=== PATIENT | female | born 1995 | race Two or more races ===

== ENCOUNTER 2016-12-11 16:09 | Emergency (ER) | payer SELFPAY ==
[2016-12-11 16:30] VITALS: BP 102/73
[2016-12-11] MEDS ORDERED: IBUPROFEN 600 MG TABLET PO ONE (16:54)
[2016-12-11] MEDS ORDERED: DEXAMETHASONE SOD PHOS INJ 10 MG/1 ML VIAL IM ONE (16:54)
--- NOTE | 2016-12-11 16:56 | ER Document Report ---
HPI - HPI Pain Level: 4 Notes: Patient is a 21-year-old female who presents the ED complaining of a sore throat , fever, decreased appetite, and a headache 1-2 days. Patient states that she is still able to eat and drink, but does have discomfort with swallowing. Last dose of motrin/tylenol was last night. She denies any drug allergies. Denies any other significant medical history. Denies any history of abscesses, mono, or strep. Denies any IV drug use. Denies any head injury, neck pain, hoarseness, drooling, URI, chest pain, palpitations, syncope, cough, shortness of breath, wheeze, dyspnea, abdominal pain, nausea/vomiting/diarrhea, urinary retention, dysuria, hematuria, or rash. - ROS Notes: REVIEW OF SYSTEMS: CONSTITUTIONAL : see hpi. Denies recent illness. EENT: see hpi. CARDIOVASCULAR: Denies chest pain. Denies palpitations or racing or irregular heart beat. Denies ankle edema. RESPIRATORY: Denies cough, cold, or chest congestion. Denies shortness of breath, difficulty breathing, or wheezing. GASTROINTESTINAL: Denies abdominal pain or distention. Denies nausea, vomiting , or diarrhea. Denies blood in vomitus, stools, or per rectum. Denies black, tarry stools. Denies constipation. GENITOURINARY: Denies difficulty urinating, painful urination, burning, frequency, blood in urine, or discharge. MUSCULOSKELETAL: Denies back or neck pain or stiffness. Denies joint pain or swelling. SKIN: Denies rash, lesions or sores. NEUROLOGICAL: see hpi. Denies confusion or altered mental status. Denies passing out or loss of consciousness. Denies dizziness or lightheadedness. Denies weakness or paralysis or loss of use of either side. Denies problems with gait or speech. Denies sensory loss, numbness, or tingling. ALL OTHER SYSTEMS REVIEWED AND NEGATIVE. Dictation was performed using [employer] voice recognition software - CARDIOVASCULAR Cardiovascular: DENIES: Chest pain - REPRODUCTIVE LMP: 2 days ago - DERM Skin Color: Normal Past Medical History - Social History Smoking Status: Unknown if Ever Smoked Chew tobacco use (# tins/day): No Frequency of alcohol use: Occasional Drug Abuse: None Family History: Reviewed & Not Pertinent Patient has suicidal ideation: No Patient has homicidal ideation: No Renal/ Medical History: Denies: Hx Peritoneal Dialysis Surgical Hx: Negative - Immunizations Hx Diphtheria, Pertussis, Tetanus Vaccination: No Vertical Provider Document - CONSTITUTIONAL Agree With Documented VS: Yes Notes: PHYSICAL EXAMINATION: GENERAL: Well-appearing, well-nourished and in no acute distress. A&Ox4 HEAD: Atraumatic, normocephalic. EYES: Pupils equal round and reactive to light, extraocular movements intact, sclera anicteric, conjunctiva are normal. ENT: EAC clear b/l. TM's intact b/l without erythema, fluid, or perforation. Nares patent and without discharge. oropharynx mild erythema without exudates. 2+ tonsilar hypertrophy b/l with exudates b/l. No palatine shift. Uvula midline. No tongue protrusion. Moist mucous membranes. No sinus tenderness. NECK: Normal range of motion, supple with anterior cerv lymphadenopathy. No rigidity/meningismus. LUNGS: Breath sounds clear to auscultation bilaterally and equal. No wheezes rales or rhonchi. HEART: Regular rate and rhythm without murmurs, rubs, gallops. ABDOMEN: Soft, nontender, nondistended abdomen. No guarding, no rebound. No masses appreciated. Normal bowel sounds present. No CVA tenderness bilaterally. No obvious hepatosplenomegally. NEUROLOGICAL: Normal speech, normal gait. Normal sensory, motor exams PSYCH: Normal mood, normal affect. SKIN: Warm, Dry, normal turgor, no rashes or lesions noted. - INFECTION CONTROL TRAVEL OUTSIDE OF THE [place] IN LAST 30 DAYS: No - RESPIRATORY O2 Sat by Pulse Oximetry: 97 Course - Re-evaluation Re-evalutation: 12/11/16 19:14 Patient is an well-hydrated 21-year-old female who presents the ED with exudative pharyngitis, suspect could still be strep based on H&P. Vitals are stable. PE is otherwise unremarkable. Rapid strep was negative with throat culture pending. CBC showed a white count of 13.2. [place] test was negative and CMP was relatively unremarkable. Patient is tolerating p.o. intake. Decadron 10 mg was given IM along with Motrin. Low suspicion for any meningitis, sepsis , peritonsillar/pharyngeal abscess, respiratory compromise, Rick's, or other emergent systemic condition at this time. Patient is aware this condition can change from initial presentation and she needs to monitor symptoms closely. I will send her home with a prescription for penicillin to take as directed. Conservative measures otherwise for symptoms. Recheck with your PCM in 2-3 days. Return to the ED with any worsening/concerning symptoms otherwise as reviewed in discharge. Patient is in agreement. - Vital Signs Vital signs: Temp Pulse Resp BP Pulse Ox 100.1 F 107 H 20 102/73 97 12/11/16 16:27 12/11/16 16:27 12/11/16 16:27 12/11/16 16:27 12/11/16 16:27 - Laboratory Result Diagrams: 12/11/16 18:10 12/11/16 18:10 Discharge - Discharge Clinical Impression: Exudative pharyngitis Condition: Stable Disposition: HOME, SELF-CARE Instructions: Penicillin V K ([facility]), Strep Throat ([facility]), Sore Throat ([facility]) Additional Instructions: Monitor for any worsening signs of infection Maintain adequate fluid intake Take meds as directed Salt water gargles, throat sprays, mouthwash rinse, peroxide gargles tylenol/ibuprofen as needed New toothbrush tomorrow evening over the counter cold medication as needed for symptoms F/u: with your PCM in 2-3 days for a recheck Consider consult with ENT for ongoing/worsening symptoms Return to the ED with any fever, worsening pain, chest pain, neck pain/stiffness , shortness of breath, cough, drooling, trouble swallowing/breathing, abdominal pain, n/v/d, rash, or worsening/concerning symptoms otherwise. Prescriptions: Penicillin V Potassium [Penicillin Vk 500 mg Tablet] 500 mg PO BID #20 tablet Referrals: [facility] [Provider Group] - Follow up as needed [facility] [Provider Group] - Follow up as needed
[2016-12-11 18:24] LABS: ABSOLUTE LYMPHOCYTES (AUTO) 0.8 10^3/uL (0.5-4.7); ABSOLUTE MONOCYTES (AUTO) 1.1 10^3/uL (0.1-1.4); ABSOLUTE NEUT (AUTO) 11.9 10^3/uL (1.7-8.2); BASOPHILS % (AUTO) 0.2 % (0-2); HEMATOCRIT 38.3 % (36.0-47.0); HEMOGLOBIN 13.5 g/dL (12.0-15.5); HGB HCT DIFFERENCE 2.2; LYMPHOCYTES % (AUTO) 5.8 % (13-45); MEAN CORPUSCULAR HEMOGLOBIN 31.6 pg (27.0-33.4); MEAN CORPUSCULAR HGB CONC 35.2 g/dL (32.0-36.0); MEAN CORPUSCULAR VOLUME 90 fl (80-97); MONOCYTES % (AUTO) 7.6 % (3-13); RED BLOOD COUNT 4.26 10^6/uL (3.72-5.28); RED CELL DISTRIBUTION WIDTH 12.6 % (11.5-14.0); SEGMENTED NEUTROPHILS % (AUTO) 86.4 % (42-78); WHITE BLOOD COUNT 13.8 10^3/uL (4.0-10.5)
[2016-12-11 18:51] LABS: ALANINE AMINOTRANSFERASE 49 U/L (9-52); ALKALINE PHOSPHATASE 92 U/L (38-126); ANION GAP 14 (5-19); ASPARTATE AMINO TRANSFERASE 38 U/L (14-36); BILIRUBIN,DIRECT 0.5 mg/dL (0.0-0.4); BILIRUBIN,TOTAL 1.1 mg/dL (0.2-1.3); BLOOD UREA NITROGEN 8 mg/dL (7-20); CALCIUM 9.3 mg/dL (8.4-10.2); CARBON DIOXIDE 21 mmol/L (22-30); CHLORIDE 102 mmol/L (98-107); CREATININE RESULT 0.68 mg/dL (0.52-1.25); GLUCOSE 101 mg/dL (75-110); POTASSIUM 3.6 mmol/L (3.6-5.0); SODIUM 136.8 mmol/L (137-145); TOTAL PROTEIN 7.3 g/dL (6.3-8.2)
== END 2016-12-11 19:42 | disposition home or self-care (01) ==
LOC: ER 16:09
DX: J02.9 Acute pharyngitis, unspecified (principal); J35.1 Hypertrophy of tonsils; R50.9 Fever, unspecified; R63.0 Anorexia; R51 Headache
CPT/HCPCS: 99283; 96372; 36415; 87070; 87880; 85025; 86308; 80053; J1100

== ENCOUNTER 2017-12-06 10:39 | Emergency (ER) | payer OTHER ==
[2017-12-06 10:44] VITALS: BP 132/94
--- NOTE | 2017-12-06 11:38 | ER Document Report ---
HPI - HPI Patient complains to provider of: Injured left foot Onset: Just prior to arrival Pain Level: 2 Context: 22-year-old female injured her left fifth toe when she was stepping down a ladder her toe got caught on metal and cut the toe and pulled her toe while you are causing pain to the toe. Her tetanus shot was given 1 year ago. Associated Symptoms: None Exacerbated by: Movement Relieved by: Denies Similar symptoms previously: No Recently seen / treated by doctor: No - ROS ROS below otherwise negative: Yes Systems Reviewed and Negative: Yes All other systems reviewed and negative Past Medical History - General Information source: Patient - Social History Smoking Status: Unknown if Ever Smoked Lives with: Family Family History: Reviewed & Not Pertinent - Medical History Medical History: Negative Renal/ Medical History: Denies: Hx Peritoneal Dialysis Surgical Hx: Negative - Immunizations Hx Diphtheria, Pertussis, Tetanus Vaccination: No Vertical Provider Document - CONSTITUTIONAL Agree With Documented VS: Yes Exam Limitations: No Limitations - INFECTION CONTROL TRAVEL OUTSIDE OF THE [place] IN LAST 30 DAYS: No - MUSCULOSKELETAL/EXTREMETIES Musculoskeletal/Extremeties: Tender. negative: FROM - She is able to move the toe but it hurts, no deformity. Notes: Left fifth toe with a superficial abrasion to the tibial side mid left fifth toe and fissure at the base of the fifth toe. No stitches are needed. Sensation is intact. - NEURO Level of Consciousness: Alert Motor/Sensory: No Motor Deficit, No Sensory Deficit Course - Re-evaluation Re-evalutation: 12/06/17 11:55 X-rays negative per radiologist. - Vital Signs Vital signs: Temp Pulse Resp BP Pulse Ox 98.4 F 66 18 132/94 H 99 12/06/17 10:43 12/06/17 10:43 12/06/17 10:43 12/06/17 10:43 12/06/17 10:43 Procedures - Immobilization Left Foot Time completed: 12:05 Pre-Proc Neuro Vasc Exam: Normal Immobilizer type: Other - Ramiro tape and postop shoe Performed by: PCT Post-Proc Neuro Vasc Exam: Normal Alignment checked and good: Yes Discharge - Discharge Clinical Impression: Left fifth toe injury, Abrasions Condition: Good Disposition: HOME, SELF-CARE Instructions: Abrasions ([facility]), Acetaminophen, Use of [id number] Ibuprofen ([facility]), Sprained Toe ([facility]) Additional Instructions: Keep the abrasions clean and dry Bacitracin daily Fracture shoe so you do not have to bend it at the toe joint when you walk until the wounds are healed Follow-up if you have any increased pain swelling fever redness or pus Forms: Restricted Release, Return to Work
--- NOTE | 2017-12-06 11:56 | RADIOLOGY REPORT (SQ) ---
EXAM DESCRIPTION: FOOT LEFT COMPLETE COMPLETED DATE/TIME: 12/06/2017 11:28 am REASON FOR STUDY: inury, cut foot COMPARISON: None. NUMBER OF VIEWS: Three views. TECHNIQUE: AP, lateral and oblique radiographic images acquired of the left foot. LIMITATIONS: External bandage. FINDINGS: MINERALIZATION: Normal. BONES: No acute fracture or dislocation. No worrisome bone lesions. JOINTS: No effusions. SOFT TISSUES: No foreign body. OTHER: No other significant finding. IMPRESSION: No fracture or foreign body. TECHNICAL DOCUMENTATION: JOB ID: [id number] [employer]- All Rights Reserved Reading location - IP/workstation name: [email or web address]
[2017-12-06] MEDS ORDERED: ACETAMINOPHEN 325 MG TABLET PO ONE (11:58)
== END 2017-12-06 12:16 | disposition home or self-care (01) ==
LOC: ER 10:39
DX: S99.922A Unspecified injury of left foot, initial encounter (principal); X50.0XXA Overexertion from strenuous movement or load, initial encounter
CPT/HCPCS: 99283

== ENCOUNTER 2017-12-30 08:24 | Emergency (ER) | payer SELFPAY ==
[2017-12-30 08:31] VITALS: BP 113/68
--- NOTE | 2017-12-30 09:08 | ER Document Report ---
HPI - HPI Patient complains to provider of: Cough and congestion Pain Level: 3 Context: Patient is a 22-year-old female presenting to the emergency department complaining of cough and congestion for the last 3 weeks. Patient states she is also had intermittent headaches throughout the last 3 weeks. Patient states she has also had recent episodes of posttussive vomiting. Patient's denying any diarrhea or fever. Patient also denying dysuria or vaginal discharge. Patient states her last measure. Was 11/15/2017. She does not have a primary care provider numbers have insurance. Patient states 2 nights ago she had a coughing fit that she ended up urinating herself and also had multiple episodes of posttussive vomiting which is what concerned her and presents her to the emergency room. Past medical history: None Medications: None Allergies: None surgical history: None Patient admits to cigarette smoking, occasional marijuana use, occasional EtOH use. Past Medical History - General Information source: Patient - Social History Smoking Status: Current Every Day Smoker Frequency of alcohol use: Occasional Drug Abuse: Marijuana Lives with: Family Family History: Reviewed & Not Pertinent Renal/ Medical History: Denies: Hx Peritoneal Dialysis - Immunizations Hx Diphtheria, Pertussis, Tetanus Vaccination: No Vertical Provider Document - CONSTITUTIONAL Agree With Documented VS: Yes Notes: GENERAL: Alert, interacts well. No acute distress. HEAD: Normocephalic, atraumatic. No frontal sinus tenderness, positive bilateral maxillary sinus tenderness. EYES: Pupils equal, round, and reactive to light. Extraocular movements intact. ENT: Oral mucosa moist, tongue midline. Nares patent, swollen turbinates bilaterally, TM's intact nonerythematous, nonbulging. Pharynx minorly erythematous, no exudate or palatal petechiae noted NECK: Full range of motion. Supple. Trachea midline. No lymphadenopathy appreciated LUNGS: Clear to auscultation bilaterally, no wheezes, rales, or rhonchi. No respiratory distress. HEART: Regular rate and rhythm. No murmur ABDOMEN: Soft, non-tender. Non-distended. Bowel sounds present in all 4 quadrants. EXTREMITIES: Moves all 4 extremities spontaneously. No edema, normal radial and dorsalis pedis pulses bilaterally. No cyanosis. BACK: no cervical, thoracic, lumbar midline tenderness. No saddle anesthesia, normal distal neurovascular exam. NEUROLOGICAL: Alert and oriented x3. Normal speech. cranial nerves II through XII grossly intact PSYCH: Normal affect, normal mood. SKIN: Warm, dry, normal turgor. No rashes or lesions noted. - INFECTION CONTROL TRAVEL OUTSIDE OF THE [place] IN LAST 30 DAYS: No Course - Re-evaluation Re-evalutation: 12/30/17 09:05 Patient's lung sounds are clear, no work of breathing. Pneumonia not likely. Likely URI with sinusitis. Will treat with oral antibiotics. Discussed at length with patient supportive treatments at home. Vital signs reviewed, nursing notes reviewed, patient not tachycardic and afebrile at this time. Stable for discharge. - Vital Signs Vital signs: Temp Pulse Resp BP Pulse Ox 98.5 F 84 18 113/68 96 12/30/17 08:30 12/30/17 08:30 12/30/17 08:30 12/30/17 08:30 12/30/17 08:30 Discharge - Discharge Clinical Impression: URI (upper respiratory infection) Qualifiers: URI type: unspecified viral URI Qualified Code(s): J06.9 - Acute upper respiratory infection, unspecified Sinusitis Qualifiers: Sinusitis location: maxillary Chronicity: acute Recurrence: non-recurrent Qualified Code(s): J01.00 - Acute maxillary sinusitis, unspecified Condition: Stable Disposition: HOME, SELF-CARE Instructions: Upper Respiratory Illness ([facility]), Viral Syndrome ([facility]), Sinusitis ([facility]) Additional Instructions: As we discussed you have been seen and treated in the emergency room for an upper respiratory infection and sinusitis. He should take medications as prescribed. Please stay well-hydrated and get plenty of rest. Please take over -the-counter Sudafed or allergy medication for your nasal congestion. Please make an appointment with your primary care provider in the next 12-24 hours. Please return to the emergency room for any other concerning symptoms. Prescriptions: Benzonatate [Tessalon Perles 100 mg Capsule] 100 mg PO Q8HP PRN #40 capsule PRN Reason: Amox Tr/Potassium Clavulanate [Augmentin 875-125 Tablet] 1 tab PO BID 10 Days tablet Mometasone Furoate [Nasonex] 2 spray NS Q12 #1 spray.pump Referrals: [facility] [Provider Group] - Follow up as needed
== END 2017-12-30 09:27 | disposition home or self-care (01) ==
LOC: ER 08:24
DX: J06.9 Acute upper respiratory infection, unspecified (principal); J01.00 Acute maxillary sinusitis, unspecified; R11.10 Vomiting, unspecified; F17.200 Nicotine dependence, unspecified, uncomplicated
CPT/HCPCS: 99283

== ENCOUNTER 2018-07-19 15:30 | Emergency (ER) | payer OTHER ==
[2018-07-19 15:44] VITALS: BP 108/52
--- NOTE | 2018-07-19 16:37 | ER Document Report ---
HPI - HPI Patient complains to provider of: head injury Time Seen by Provider: 07/19/18 16:28 Onset: Just prior to arrival Onset/Duration: Sudden Quality of pain: Achy Severity: Moderate Pain Level: 3 Context: Patient presents emergency department with complaints of head injury. 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 She denies change in LOC. Reports she had a little headache now. Denies vomiting. Her at the bedside reports she is acting normal as usual. She reports her work sent her here. Associated Symptoms: None Exacerbated by: Denies Relieved by: Denies Similar symptoms previously: No Recently seen / treated by doctor: No - REPRODUCTIVE Reproductive: DENIES: : - DERM Skin Color: Normal, [place] Past Medical History - General Information source: Patient Last Menstrual Period: june - Social History Smoking Status: Current Every Day Smoker Cigarette use (# per day): Yes Frequency of alcohol use: Occasional Drug Abuse: None Occupation: [employer] Lives with: Family Family History: Reviewed & Not Pertinent Patient has suicidal ideation: No Patient has homicidal ideation: No - Medical History Medical History: Negative Renal/ Medical History: Denies: Hx Peritoneal Dialysis Surgical Hx: Negative - Immunizations Hx Diphtheria, Pertussis, Tetanus Vaccination: No Vertical Provider Document - CONSTITUTIONAL Agree With Documented VS: Yes Exam Limitations: No Limitations General Appearance: WD/WN, No Apparent Distress - INFECTION CONTROL TRAVEL OUTSIDE OF THE [place] IN LAST 30 DAYS: No - HEENT HEENT: Atraumatic, Normocephalic, PERRLA - NECK Neck: Normal Inspection, Supple. negative: Lymphadenopathy-Left, Lymphadenopathy-Right - RESPIRATORY Respiratory: Breath Sounds Normal, No Respiratory Distress - CARDIOVASCULAR Cardiovascular: Regular Rate, Regular Rhythm - MUSCULOSKELETAL/EXTREMETIES Musculoskeletal/Extremeties: MAEW, FROM, Non-Tender - NEURO Level of Consciousness: Awake, Alert, Appropriate - DERM Integumentary: Warm, Dry Course - Re-evaluation Re-evalutation: 07/19/18 16:37 No obvious signs of trauma. Patient is acting appropriately answering all questions appropriately. Discussed head injury signs and symptoms to return for. She verbalized understanding to all instruction. Dictation of this chart was performed using voice recognition software; therefor e, there may be some unintended grammatical errors. - Vital Signs Vital signs: Temp Pulse Resp BP Pulse Ox 97.9 F 66 16 108/52 L 99 07/19/18 15:42 07/19/18 15:42 07/19/18 15:42 07/19/18 15:42 07/19/18 15:42 Discharge - Discharge Clinical Impression: Head injury Qualifiers: Encounter type: initial encounter Qualified Code(s): S09.90XA - Unspecified injury of head, initial encounter Condition: Stable Disposition: HOME, SELF-CARE Instructions: Head Injury Precautions ([facility]) Additional Instructions: *You have been evaluated for a head injury after being hit in head by a ladder *Rest your brain, No video games/TV *Follow up with a primary care provider in 1 week for recheck *Return to ED for worsening condition, changes, needs, vomiting confusion concerns. Forms: Return to Work
== END 2018-07-19 16:40 | disposition home or self-care (01) ==
LOC: ER 15:30
DX: S09.90XA Unspecified injury of head, initial encounter (principal); W20.8XXA Other cause of strike by thrown, projected or falling object, initial encounter; Y99.0 Civilian activity done for income or pay; F17.210 Nicotine dependence, cigarettes, uncomplicated
CPT/HCPCS: 99283

== ENCOUNTER 2019-12-02 18:11 | Emergency (ER) | payer MEDICAID, OTHER ==
--- NOTE | 2019-12-02 18:29 | ER Document Report ---
ED Medical Screen (RME) - General Chief Complaint: Vag Bleeding, +preg <12wks Stated Complaint: VAGINAL BLEEDING/ABDOMINAL PAIN Time Seen by Provider: 12/02/19 18:20 Mode of Arrival: Ambulatory Information source: Patient Notes: 24-year-old female presents to ED for complaint of vaginal bleeding that started this afternoon. She states she has not been needing to use a sanitary pad she is just been cleaning herself. She is 1 para 0. She does not have any pelvic cramping but she does have some pain in her upper abdomen. She said she is not sure exactly how far she is but she thinks she is 14 weeks. She does not smoke does not drink does not use any illicit drugs. 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 I have greeted and performed a rapid initial assessment of this patient. A comprehensive ED assessment and evaluation of the patient, analysis of test results and completion of medical decision making process will be conducted by an additional ED providers. TRAVEL OUTSIDE OF THE [place] IN LAST 30 DAYS: No - Related Data Allergies/Adverse Reactions: No Known Allergies Allergy (Verified 07/19/18 15:51) Past Medical History Renal/ Medical History: Denies: Hx Peritoneal Dialysis - Immunizations Hx Diphtheria, Pertussis, Tetanus Vaccination: No Physical Exam - Vital signs Vitals: Temp Pulse Resp BP Pulse Ox 98.5 F 76 18 131/77 H 100 12/02/19 18:15 12/02/19 18:15 12/02/19 18:15 12/02/19 18:15 12/02/19 18:15 Course - Vital Signs Vital signs: Temp Pulse Resp BP Pulse Ox 98.5 F 76 18 131/77 H 100 12/02/19 18:15 12/02/19 18:15 12/02/19 18:15 12/02/19 18:15 12/02/19 18:15
[2019-12-02 19:02] LABS: ABSOLUTE EOSINOPHILS # (AUTO) 0.1 10^3/uL (0.0-0.6); ABSOLUTE LYMPHOCYTES (AUTO) 2.4 10^3/uL (0.5-4.7); ABSOLUTE MONOCYTES (AUTO) 0.7 10^3/uL (0.1-1.4); BASOPHILS % (AUTO) 0.2 % (0-2); EOSINOPHILS % (AUTO) 0.9 % (0-6); HEMATOCRIT 35.9 % (36.0-47.0); HEMOGLOBIN 12.6 g/dL (12.0-15.5); LYMPHOCYTES % (AUTO) 19.4 % (13-45); MEAN CORPUSCULAR HEMOGLOBIN 32.5 pg (27.0-33.4); MEAN CORPUSCULAR HGB CONC 35.2 g/dL (32.0-36.0); MEAN CORPUSCULAR VOLUME 92 fl (80-97); MONOCYTES % (AUTO) 5.5 % (3-13); PLATELET COUNT 222 10^3/uL (150-450); RED BLOOD COUNT 3.89 10^6/uL (3.72-5.28); RED CELL DISTRIBUTION WIDTH 12.9 % (11.5-14.0); TOTAL CELLS COUNTED % (AUTO) 100 %; WHITE BLOOD COUNT 12.2 10^3/uL (4.0-10.5)
[2019-12-02 19:18] LABS: ALBUMIN 3.7 g/dL (3.5-5.0); ALKALINE PHOSPHATASE 45 U/L (38-126); ASPARTATE AMINO TRANSFERASE 21 U/L (14-36); CARBON DIOXIDE 22 mmol/L (22-30); CHLORIDE 104 mmol/L (98-107); TOTAL PROTEIN 6.5 g/dL (6.3-8.2)
[2019-12-02 19:19] LABS: ANION GAP 8 (5-19)
[2019-12-02 19:20] LABS: BILIRUBIN,DIRECT 0.2 mg/dL (0.0-0.4); BILIRUBIN,TOTAL 0.3 mg/dL (0.2-1.3); BLOOD UREA NITROGEN 6 mg/dL (7-20); CALCIUM 9.4 mg/dL (8.4-10.2); GLUCOSE 87 mg/dL (75-110); POTASSIUM 3.8 mmol/L (3.6-5.0)
--- NOTE | 2019-12-02 19:32 | RADIOLOGY REPORT (SQ) ---
EXAM DESCRIPTION: U/S OB 14+ TRNABD 1GES W/O DOP IMAGES COMPLETED DATE/TIME: 12/02/2019 7:15 pm REASON FOR STUDY: Vaginal bleeding, abdominal pain, 14 weeks COMPARISON: None. TECHNIQUE: Transabdominalgrayscale images acquired of the pelvis. All images stored on PACs. bHCG: Pending. CLINICAL DATES: Not Available. LIMITATIONS: None. FINDINGS: FETUS: Single Living intrauterine . ULTRASOUND EGA: 13 weeks 4 days ULTRASOUND JUANY: 06/04/2020 EFW: Not applicable less than 20 weeks. CRL: 7.50 cm FHR: 136 beats per minute. SUBCHORIONIC BLEED: No. SIZE OF BLEED: Not applicable. UTERUS: Measures 17.7 x 7.7 x 11.3 cm. CERVICAL LENGTH: 3.6 cm. RIGHT ADNEXA: The right ovary was not visualized. LEFT ADNEXA: The left ovary was not visualized. FREE FLUID: None. IMPRESSION: LIVING INTRAUTERINE . EGA 13 WEEKS 4 DAYS. Trimester of : Second trimester - 13 weeks 1 day to 27 weeks 6 days. TECHNICAL DOCUMENTATION: JOB ID: [id number] 2010 [employer]- All Rights Reserved rev-07/02 Reading location - IP/workstation name: [email or web address]
[2019-12-02 20:35] LABS: APPEARANCE,URINE CLEAR; BILIRUBIN,URINE NEGATIVE (NEGATIVE); COLOR,URINE COLORLESS; GLUCOSE, URINE NEGATIVE (NEGATIVE); KETONES,URINE NEGATIVE (NEGATIVE); LEUKOCYTE ESTERASE,URINE TRACE (NEGATIVE); NITRITE,URINE NEGATIVE (NEGATIVE); PROTEIN,URINE NEGATIVE (NEGATIVE); URINE SPECIFIC GRAVITY 1.003; UROBILINOGEN,URINE NEGATIVE mg/dL (<2.0)
--- NOTE | 2019-12-02 21:16 | ER Document Report ---
ED GI/ - General Chief Complaint: Vaginal Bleeding Stated Complaint: VAGINAL BLEEDING/ABDOMINAL PAIN Time Seen by Provider: 12/02/19 18:20 Primary Care Provider: CLAUDIA AGUILAR MD [ACTIVE STAFF] - Follow up in 3-5 days Mode of Arrival: Ambulatory TRAVEL OUTSIDE OF THE [place] IN LAST 30 DAYS: No - HPI Notes: 12/02/19 21:12 Patient is a 24-year-old female who presents with vaginal bleeding. She thinks she is about 14 weeks . She has not had an appointment with OB yet but she has someone in [place] that she will see. Patient states that she was at work today and wiped after using the bathroom and noticed some blood on there. This happened again the second time she went to the bathroom to urinate. She has not been soaking any pads. She states she does have spotting on the toilet paper. She states she does have some abdominal cramping. Denies any chest pain or shortness of breath. No nausea or vomiting. No urinary s ymptoms. - Related Data Allergies/Adverse Reactions: No Known Allergies Allergy (Verified 07/19/18 15:51) Past Medical History - General Information source: Patient - Social History Smoking Status: Never Smoker Chew tobacco use (# tins/day): No Frequency of alcohol use: None Drug Abuse: None Family History: Reviewed & Not Pertinent Renal/ Medical History: Denies: Hx Peritoneal Dialysis - Immunizations Hx Diphtheria, Pertussis, Tetanus Vaccination: No Review of Systems - Review of Systems Notes: CONSTITUTIONAL: No fever, fatigue or weight loss. SKIN: No rash. HENT: No congestion, ear pain, or sore throat. EYES: No recent vision problems or eye pain. CARDIOVASCULAR: No chest pain or edema. RESPIRATORY: No cough, shortness of breath, congestion, or wheezing. GASTROINTESTINAL: No abdominal pain, nausea, vomiting, bloody stools or diarrhea. GENITOURINARY: No dysuria. Positive for vaginal spotting. MUSCULOSKELETAL: No joint pain or swelling. LYMPHATIC: No swollen glands. NEUROLOGIC: No seizures. No headache, focal weakness or sensory changes. PSYCHIATRIC: No depression or anxiety. Physical Exam - Vital signs Vitals: Temp Pulse Resp BP Pulse Ox 98.5 F 76 18 131/77 H 100 12/02/19 18:15 12/02/19 18:15 12/02/19 18:15 12/02/19 18:15 12/02/19 18:15 - General General appearance: Appears well Notes: VITAL SIGNS: Within normal limits. GENERAL: No acute distress, non-toxic appearance. HEAD: Normal with no signs of head trauma. EYES: EOMI, conjunctiva normal, no discharge. EARS: Hearing grossly intact. NOSE: Normal. NECK: Normal range of motion, no tenderness, supple, no lymphadenopathy, No adenopathy, no JVD. CHEST: Clear breath sounds bilaterally. No wheezes, rales, or rhonchi. CARDIAC: Regular rate and rhythm. S1 and S2, without murmurs, gallops, or rubs. VASCULAR: No Edema. ABDOMEN: Non tender. LYMPATHTIC: No lymphadenopathy noted. MUSCULOSKELETAL: Good range of motion of all major joints. Extremities without clubbing, cyanosis or edema. NEUROLOGICAL: Alert and oriented x 3. No focal sensory or strength deficits. Speech normal. Follows commands appropriately. PSYCHIATRIC: Normal Affect, judgement and mood. SKIN: Normal appearance with no rashes or lesions. Course - Re-evaluation Re-evalutation: 12/02/19 21:15 Patient mention to me that she has had a small cyst in the vaginal area for several weeks. She has had these before. I did offer to do a pelvic exam with cultures but she declined. She did state that she wanted me to look at that area. The area was a small bump at her left upper thigh. There is no sign of abscess or infection. I did instruct her to do sits baths or warm compresses. I informed patient that her ultrasound shows a live intrauterine at 13 weeks and 4 days. Patient's urinalysis does not appear infected. I will send it for culture. I also informed her that she needs to be on pelvic rest and follow- up with her OB. Patient does not require rhogam. I did give her the number for one of our [employer] to follow-up with within the week. She needs to return for any bleeding, abdominal pain, any concerning symptoms. 12/03/19 00:41 - Vital Signs Vital signs: Temp Pulse Resp BP Pulse Ox 99.1 F 70 18 108/59 L 100 12/02/19 21:49 12/02/19 21:49 12/02/19 21:49 12/02/19 21:49 12/02/19 21:49 - Laboratory Result Diagrams: 12/02/19 18:40 12/02/19 18:40 Laboratory results interpreted by me: 12/02/19 12/02/19 12/02/19 18:40 18:40 20:00 WBC 12.2 H Hct 35.9 L Absolute Neuts (auto) 9.0 H Sodium 134.4 L BUN 6 L Creatinine 0.46 L Beta HCG, Quant 89125.00 H Urine Blood MODERATE H Ur Leukocyte Esterase TRACE H - Diagnostic Test Radiology reviewed: Image reviewed, Reports reviewed Discharge - Discharge Clinical Impression: Second trimester , Vaginal bleeding during , Threatened miscarriage Condition: Stable Disposition: HOME, SELF-CARE Instructions: Bleeding During Early ([facility]), Threatened Miscarriage ([facility]) Referrals: CLAUDIA AGUILAR MD [ACTIVE STAFF] - Follow up in 3-5 days
[2019-12-02 21:53] VITALS: BP 108/59
== END 2019-12-02 22:27 | disposition home or self-care (01) ==
LOC: ER 18:11
DX: O20.0 Threatened abortion (principal); Z3A.13 13 weeks gestation of pregnancy
CPT/HCPCS: 36415; 76805; 80053; 81001; 84702; 85025; 86900; 86901; 87086; 99284

== ENCOUNTER 2020-02-16 13:44 | Outpatient (CLI) | payer MEDICAID ==
[2020-02-16 14:38] LABS: HEMATOCRIT 32.8 % (36.0-47.0); HEMOGLOBIN 11.6 g/dL (12.0-15.5); MEAN CORPUSCULAR HEMOGLOBIN 31.9 pg (27.0-33.4); MEAN CORPUSCULAR HGB CONC 35.5 g/dL (32.0-36.0); MEAN CORPUSCULAR VOLUME 90 fl (80-97); PLATELET COUNT 170 10^3/uL (150-450); RED BLOOD COUNT 3.65 10^6/uL (3.72-5.28); RED CELL DISTRIBUTION WIDTH 12.3 % (11.5-14.0); WHITE BLOOD COUNT 9.3 10^3/uL (4.0-10.5)
[2020-02-16 14:46] LABS: APPEARANCE,URINE CLEAR; BILIRUBIN,URINE NEGATIVE (NEGATIVE); COLOR,URINE COLORLESS; GLUCOSE, URINE NEGATIVE (NEGATIVE); KETONES,URINE NEGATIVE (NEGATIVE); LEUKOCYTE ESTERASE,URINE NEGATIVE (NEGATIVE); NITRITE,URINE NEGATIVE (NEGATIVE); PROTEIN,URINE NEGATIVE (NEGATIVE); URINE SPECIFIC GRAVITY 1.001; UROBILINOGEN,URINE NEGATIVE mg/dL (<2.0)
[2020-02-16 14:49] LABS: FIBRINOGEN 460 mg/dL (209-497); INTERNATIONAL RATION (INR) 0.93; PROTHROMBIN TIME 12.6 SEC (11.4-15.4)
[2020-02-16 15:00] LABS: URINE AMPHETAMINES SCREEN NEGATIVE; URINE BARBITURATES SCREEN NEGATIVE; URINE BENZODIAZEPINES SCREEN NEGATIVE; URINE COCAINE SCREEN NEGATIVE; URINE METHADONE SCREEN NEGATIVE; URINE PHENCYCLIDINE SCREEN NEGATIVE
[2020-02-16 15:07] LABS: URINE MARIJUANA (THC) SCREEN UNCONFIRMED POSITIVE
--- NOTE | 2020-02-16 15:18 | RADIOLOGY REPORT (SQ) ---
EXAM DESCRIPTION: U/S OB 14+ TRNABD 1GES W/O DOP IMAGES COMPLETED DATE/TIME: 02/16/2020 3:04 pm REASON FOR STUDY: 24.3ega, fall at [facility], OB complete COMPARISON: 12/02/2019. TECHNIQUE: Static and Dynamic grayscale imaging performed of gravid uterus using transabdominal appr oach. Additional selected color Doppler and spectral images recorded. All stored on PACS. LIMITATIONS: None. FINDINGS: FETUSES SEEN:1 EGA: 25 week 1 day. Calculated using BPD,FL,HC,AC documented on images. No discrepancy with clinical dates. JUANY: 05/30/2020. EFW: 790 grams PERCENTILE: 49%. DYLAN: 20.3 cm. PLACENTA: Posterior. PRESENTATION: Cephalic. ANATOMY: HEART RATE: 141 beats per minute. FOUR CHAMBER HEART: Visualized. THREE VESSEL CORD: Yes. CORD INSERTION: Visualized. KIDNEYS AND BLADDER: Visualized. Appear normal. STOMACH: Visualized. Appears normal. SPINE: Normal as visualized. BRAIN AND LATERAL VENTRICLES: Limited visualization due to positioning. No gross abnormality. OTHER: No other significant finding. MATERNAL ADNEXA: Maternal ovaries not visualized. CERVICAL LENGTH: 2.7 cm. Closed. OTHER: No other significant finding. IMPRESSION: LIVING INTRAUTERINE . ESTIMATED GESTATIONAL AGE 25 WEEK 1 DAY. NO VISUALIZED ANOMALIES. Trimester of : Second trimester - 13 weeks 1 day to 27 weeks 6 days. TECHNICAL DOCUMENTATION: JOB ID: [id number] 2010 [employer]- All Rights Reserved Reading location - IP/workstation name: [email or web address]
--- NOTE | 2020-02-16 16:04 | PDOC PROGRESS REPORT ---
Subjective Date:: 02/16/20 Subjective:: s/p fall at [facility], fell on left knee initially then rolled to left thigh and sort of onto left abdomen. No vb, no LOF, no ctx. Pt reports the floor was wet but no sign was out. Reason For Visit: LABOR CHECK Physical Exam - Physical Exam Vital Signs: Intake & Output 02/15/20 02/16/20 02/17/20 06:59 06:59 06:59 Weight 92.4 kg General appearance: PRESENT: no acute distress, well-developed, well-nourished Head exam: PRESENT: atraumatic, normocephalic Neck exam: PRESENT: full ROM. ABSENT: carotid bruit, JVD, lymphadenopathy, thyromegaly Respiratory exam: PRESENT: clear to auscultation alice, symmetrical, unlabored Cardiovascular exam: PRESENT: RRR. ABSENT: diastolic murmur, rubs, systolic murmur GI/Abdominal exam: PRESENT: normal bowel sounds, soft. ABSENT: distended, guarding, mass, organolmegaly, rebound, tenderness Rectal exam: PRESENT: deferred Extremities exam: PRESENT: full ROM. ABSENT: calf tenderness, clubbing, pedal edema Neurological exam: PRESENT: alert, awake, oriented to person, oriented to place, oriented to time, oriented to situation, CN II-XII grossly intact. ABSENT: motor sensory deficit Skin exam: PRESENT: abrasion, other - 2-3cm bruise noted on left knee over patella. no bruising noted on left thigh. Pt does report ttp over left knee and left thigh. No bruising noted on left thigh and no bruising noted on abdomen. - Obstetrical Exam External Genitalia: not examined - no vaginal bleeding, no contractions, no pelvic pressure Result Laboratory Results: 02/16/20 14:24 02/16/20 02/16/20 14:14 14:24 WBC 9.3 RBC 3.65 L Hgb 11.6 L Hct 32.8 L MCV 90 MCH 31.9 MCHC 35.5 RDW 12.3 Plt Count 170 Urine Color COLORLESS Urine Appearance CLEAR Urine pH 7.0 Ur Specific [place] 1.001 Urine Protein NEGATIVE Urine Glucose (UA) NEGATIVE Urine Ketones NEGATIVE Urine Blood NEGATIVE Urine Nitrite NEGATIVE Ur Leukocyte Esterase NEGATIVE Urine RBC (Auto) 0 Impressions: Obstetrics Ultrasound 02/16/20 13:49 IMPRESSION: LIVING INTRAUTERINE . ESTIMATED GESTATIONAL AGE 25 WEEK 1 DAY. NO VISUALIZED ANOMALIES. Trimester of : Second trimester - 13 weeks 1 day to 27 weeks 6 days. Assessment & Plan - Diagnosis (1) Fall Qualifiers: Encounter type: initial encounter Qualified Code(s): W19.XXXA - Unspecified fall, initial encounter Is this a current diagnosis for this admission?: Yes Plan: s/p fall at [facility]. See above note. Patient is cleared from baby standpoint. US reassuring and normal placenta, normal fluid, normal cervical length. Labs normal except for anemia. Pt recommended to proceed to ER for evaluation of Left knee contusion. monitored for 4 hours since fall with no uterine activity. Fall occured per report at [id number] (2) Drug abuse during Is this a current diagnosis for this admission?: Yes Plan: +THC on urine drug screen. Confirmation requested (3) Contusion of left knee Qualifiers: Encounter type: initial encounter Qualified Code(s): S80.02XA - Contusion of left knee, initial encounter Is this a current diagnosis for this admission?: Yes Plan: pt recommended to see ER. Will discharge from here and take to ER for evaluation of LLE - Time Time Spent with patient: 15-24 minutes
[2020-02-16 19:21] LABS: RHOGAM DOSE INDICATED 0 VIAL(S)
== END 2020-02-16 16:20 | disposition home or self-care (01) ==
LOC: LC 13:44
PROVIDERS: ATTEND Student in an Organized Health Care Education/Training Program
DX: O9A.212 Injury, poisoning and certain other consequences of external causes complicating pregnancy, second trimester (principal); S80.02XA Contusion of left knee, initial encounter; W20.0XXA Struck by falling object in cave-in, initial encounter; O99.322 Drug use complicating pregnancy, second trimester; F12.10 Cannabis abuse, uncomplicated; Z3A.25 25 weeks gestation of pregnancy; Y93.9 Activity, unspecified; Y92.511 Restaurant or cafe as the place of occurrence of the external cause
CPT/HCPCS: 59899; 36415; 85027; 85384; 85610; 85730; 81001; 85460; 80307; 76805; G0480 ×2; 80349